=== PATIENT | male | born 1975 | race African-American/Black ===

== ENCOUNTER 2018-03-25 12:12 | Emergency (ER) | payer OTHER ==
[~2018-03-25] VITALS: Ht 182.9 cm; Wt 74.8 kg
[~2018-03-25 12:12] MED LIST: CYCLOBENZAPRINE10 MG ORAL; IBUPROFEN600 MG ORAL; NKM; NORCO 5-325 TA1 EACH ORAL; ROBAXIN-750750 MG PO; SULFAMETHOXAZO1 EAC2 ORAL
[2018-03-25] MEDS ORDERED: HYDROcodone/Acetamin 7.5/325 tab ORAL ONE (13:00)
--- NOTE | 2018-03-25 13:02 | Emergency Room Report ---
History of Present Illness General Chief Complaint: Lower Extremity Injury Source: Patient Present Illness HPI 42-year-old male presents to the emergency department complaining of localized 8 out of 10 in severity pain, tenderness, swelling, bleeding and bruising to the left distal toe and toenail since yesterday. Patient reports that he was attempting to move a large table when it fell on top of his toe. She describes throbbing constant pain with 10 out of 10 in severity exacerbation upon palpation or bearing weight. He states he is up-to-date with his tetanus vaccination he denies taking blood thinning medications any denies history of immunocompromise. Allergies: Uncoded Allergies: PEANUT BUTTER (Allergy, Unknown, 07/15/15) SHELLFISH (Allergy, Unknown, 07/15/15) Patient History Past Medical History: see triage record Past Surgical History: none Pertinent Family History: none Immunizations: UTD Reviewed Nursing Documentation: PMH: Agreed; PSxH: Agreed Nursing Documentation-PMH Past Medical History: No History, Except For Hx Cardiac Problems: No - LEFT SHOULDER SURGERY Hx Asthma: Yes Review of Systems All Other Systems: negative except mentioned in HPI Physical Exam Vital Signs Date Time Temp Pulse Resp B/P (MAP) Pulse Ox O2 Delivery O2 Flow Rate FiO2 03/25/18 12:24 98.6 76 12 114/79 99 Room Air Sp02 EP Interpretation: reviewed, normal General Appearance: no apparent distress, alert, GCS 15, non-toxic Head: normocephalic, atraumatic Eyes: bilateral eye normal inspection, bilateral eye PERRL ENT: hearing grossly normal, normal voice Neck: full range of motion Respiratory: lungs clear, normal breath sounds, speaking full sentences Cardiovascular #1: regular rate, rhythm Musculoskeletal: back normal, gait/station normal, normal range of motion, tender - TTP to the left great toe distally. bruising and subungual hematoma noted. Neurologic: alert, oriented x3, responsive, motor strength/tone normal, sensory intact, speech normal, grossly normal Psychiatric: judgement/insight normal Skin: no rash, warm/dry, well hydrated, other - left great toe subungual hemaoma with almost complete nail avulsion. , hematoma - distal left toe. Procedures Laceration/Wound Repair Laceration/Wound Repair : Consent: Verbal Wound Location: lower extremity - left great toe nailbed. Wound's Depth, Shape: linear Wound Length (cm): 1 Wound Explored: clean Irrigated w/ Saline (ccs): 400 Anesthesia: 1% Lidocaine Volume Anesthetic (ccs): 8 Wound Debrided: moderate - Nail removal Wound Repaired With: sutures Suture Size/Type: 5:0, other - Chromic gut Layer Closure?: No Sterile Dressing Applied?: Yes Splint Applied?: Yes Type of Splint Applied: Cast shoe Sling Applied?: No Patient Tolerated: Well Complications: None Additional Procedure Procedure Narrative Patient gave verbal consent for toenail removal of the left great toe. Patient is anesthetized via digital block of the left great toe using approximately 6 mL of 1% lidocaine without epinephrine. -The toenail and toe is cleaned and prepped with Betadine solution. -Good anesthetic result is obtained -The nail is removed via blunt dissection using hemostats. -The nailbed is examined and there is a 1cm nailbed laceration which was approximated using 4 5.0 chromic dissolving interrupted sutures. -Direct pressure with sterile gauze was used to attain hemostasis. -Bacitracin is applied. -Sterile dressing is applied -This patient tolerated the procedure well there were no complications Medical Decision Making PA Attestation Dr. doe is my supervising Physician whom patient management has been discussed with. Diagnostic Impression: Primary Impression: Traumatic avulsion of nail plate of toe Qualified Codes: S91.209A - Unspecified open wound of unspecified toe(s) with damage to nail, initial encounter Additional Impressions: Laceration of nail bed of toe Qualified Codes: S91.219A - Laceration without foreign body of unspecified toe (s) with damage to nail, initial encounter Toe fracture, left Qualified Codes: S92.422B - Displaced fracture of distal phalanx of left great toe, initial encounter for open fracture ER Course 42-year-old male presents to the emergency department complaining of localized 8 out of 10 in severity pain, tenderness, swelling, bleeding and bruising to the left distal toe and toenail since yesterday. Patient reports that he was attempting to move a large table when it fell on top of his toe. She describes throbbing constant pain with 10 out of 10 in severity exacerbation upon palpation or bearing weight. He states he is up-to-date with his tetanus vaccination he denies taking blood thinning medications any denies history of immunocompromise. Ddx considered but are not limited to Fracture, dislocation, contusion, nail avulsion, nail plate laceration, laceration just to name a few. Vital signs: are WNL, pt. is afebrile H&PE are most consistent with musculoskeletal injury will perform imaging to r/ o fractures/dislocations. ORDERS: - X-ray Left Foot 3 views - small tuft fracture that is non displaced of the left great toe. No Dislocation, or significant soft tissue injury, per preliminary read in ED, and signed by DENISE Pastor, my supervising physician has reviewed, and agrees with my interpretation. ED INTERVENTIONS: - [place] PO - Nail Removal -Nail Bed laceration repair: 4 sutures- dissolving - Sterile dressing applied -Pt. supplied with a cane. DISCHARGE: At this time pt. is stable for d/c to home. Will provide printed patient care instructions, and any necessary prescriptions. Care plan and follow up instructions have been discussed with the patient prior to discharge. Other X-Ray Diagnostic Results Other X-Ray Diagnostic Results : X-Ray ordered: left foot # of Views/Limited Vs Complete: 3 View Indication: Pain EP Interpretation: Yes DENISE Xray: Interpretation reviewed, by supervising MD, and agrees with findings. Interpretation: no dislocation, no soft tissue swelling, other - small tuft fracture that is non displaced of the left great toe. Impression: Other - Abnormal Electronically Signed by: Marlee Pastor PA-C Last Vital Signs Date Time Temp Pulse Resp B/P (MAP) Pulse Ox O2 Delivery O2 Flow Rate FiO2 03/25/18 12:24 98.6 76 12 114/79 99 Room Air Disposition: HOME, SELF-CARE Condition: Stable Scripts Acetaminophen With Codeine (T#3) (TYLENOL #3 TAB*) Y Tab 1 TAB ORAL Q6H PRN for For Pain, #9 TAB Prov: Marlee Pastor 03/25/18 Bacitracin/Polymyxin B Sulfate (BACITRACIN-POLYMYXIN OINTMENT) 28.35 Gm Oint...g. 1 APPLIC TP BID, #28.3 GM Prov: Mralee Pastor 03/25/18 Amoxicillin/Potassium Clav 875-125* (AUGMENTIN 875-125 TABLET*) 1 Each Tablet 1 TAB ORAL TWICE A DAY for 7 Days, #14 TAB Prov: Marlee Pastor 03/25/18 Referrals: NOT CHOSEN IPA/MD,REFERRING (PCP) Patient Instructions: Nail Avulsion, Nail Bed Injury, [id number], Subungual Hematoma, [id number] Additional Instructions: Take medications as directed. Follow up with a Primary Care Provider in 3-5 days, even if your symptoms have resolved. --Please review list of primary care clinics, if you do not already have a primary care provider Return sooner to ED if new symptoms occur, or current symptoms become worse. Do not drink alcohol, drive, or operate heavy machinery while taking [place] as this may cause drowsiness. - Please note that this Emergency Department Report was dictated using [employer] technology software, occasionally this can lead to erroneous entry secondary to interpretation by the dictation equipment. Marlee Pastor Mar 25, 2018 13:02
[2018-03-25] MEDS ORDERED: Lidocaine 1% Plain 30 ml INJ ONE (13:15)
[2018-03-25] MEDS ORDERED: AUGMENTIN 875-1 EAC1 ORAL (14:13)
[2018-03-25] MEDS ORDERED: BACITRACIN-P28.35 GM TP (14:13)
[2018-03-25 14:19] VITALS: BP 125/80
[2018-03-25] MEDS ORDERED: ACETAMINOPHEN-1 EAC1 ORAL (14:19)
--- NOTE | 2018-03-27 13:56 | Diagnostic Imaging Report ---
Indication: Left foot pain Technique: 3 views left foot Comparison: none Findings: No acute fractures. No dislocations. The joint spaces are preserved. Impression: Negative
== END 2018-03-25 14:20 | disposition home or self-care (01) ==
LOC: EMR 12:43
DX: S91.212A Laceration without foreign body of left great toe with damage to nail, initial encounter (principal); W20.8XXA Other cause of strike by thrown, projected or falling object, initial encounter; Y92.89 Other specified places as the place of occurrence of the external cause; Z91.010 Allergy to peanuts; Z91.013 Allergy to seafood; J45.909 Unspecified asthma, uncomplicated
CPT/HCPCS: 11730; 73630; 99284; J2001; Z7502